=== PATIENT | male | born 1965 | race Caucasian/White ===

== ENCOUNTER → 2018-10-13 | Outpatient (CLI) | payer OTHER | END | disposition home or self-care (01) | LOC: CFH 12:33 | PROVIDERS: ATTEND Family Medicine | DX: M51.37 Other intervertebral disc degeneration, lumbosacral region (principal) | CPT/HCPCS: 72110 ==

== ENCOUNTER → 2020-11-22 | Outpatient (CLI) | payer OTHER ==
[~2020-11-22] MED LIST: CYCL10TA2 PO; METO50TA82 PO
[2020-11-22 12:55] LABS: BASOPHILS % (AUTO) 3 % (0-1); EOSINOPHILS % (AUTO) 10 % (1-7); LYMPHOCYTES % (AUTO) 23 % (22-44); MEAN CORPUSCULAR HEMOGLOBIN 33.4 pg (27.5-34.5); MEAN CORPUSCULAR HGB CONC 34.1 g/dL (33.2-36.2); MEAN PLATELET VOLUME 8.8 fL (7.4-10.4); MONOCYTES % (AUTO) 18 % (2-9); NEUTROPHILS % (AUTO) 46 % (42-75); PLATELET COUNT 196 x10^3/uL (130-400); RED BLOOD COUNT 4.97 x10^6/uL (4.38-5.82); RED CELL DISTRIBUTION WIDTH 13.1 % (9.4-14.8)
[2020-11-22 12:56] LABS: MD NO
[2020-11-22 13:00] LABS: ANION GAP 6 mmol/L (5-15); CALCIUM 9.2 mg/dL (8.5-10.1); CHLORIDE 101 mmol/L (98-107); CREATININE 0.83 mg/dL (0.7-1.3)
[2020-11-22 13:03] LABS: INTERNATIONAL NORMALIZED RATIO 1.01 (0.93-1.1); PROTHROMBIN TIME 10.8 Seconds (9.6-11.5)
== END | disposition home or self-care (01) ==
LOC: STAR 11:51
PROVIDERS: ATTEND Neurological Surgery
DX: Z01.818 Encounter for other preprocedural examination (principal); M51.36 Other intervertebral disc degeneration, lumbar region; Z20.822 Contact with and (suspected) exposure to COVID-19
CPT/HCPCS: 36415; 71046; 72110; 80048; 85025; 85610; 85730; 93005; U0003; U0005

== ENCOUNTER 2020-11-28 07:46 | Day surgery (SDC) | payer OTHER ==
[~2020-11-28] VITALS: Ht 177.8 cm; Wt 90.3 kg
[~2020-11-28 07:46] MED LIST changes: +BACITRACIN 50,000 UNIT ONE; +BACITRACIN OINT 500U/GM, 15 GM ONE; +BUPIVACAINE/PF 0.5% ONE; +EPINEPHRINE 1 MG/ML, 1ML ONE; +THROMBIN 20,000 UNIT VIAL TP ONE
[2020-11-28] MEDS ORDERED: FENTANYL PF 250 MCG/5ML ONE (08:22)
[2020-11-28] MEDS ORDERED: PROPOFOL 50 ML ONE ×2 (08:22→11:19)
[2020-11-28] MEDS ORDERED: MIDAZOLAM 1 MG/ML, 2ML ONE (08:22)
[2020-11-28] MEDS ORDERED: LIDOCAINE-MPF 2% ,5ML ONE (08:25)
[2020-11-28] MEDS ORDERED: PROPOFOL 10 MG/ML, 20ML ONE (08:25)
[2020-11-28] MEDS ORDERED: CEFAZOLIN 1,000 MG ONE ×2 (08:25)
[2020-11-28] MEDS ORDERED: SUCCINYLCHOLINE 20 MG/ML, 10ML ONE (08:25)
[2020-11-28] MEDS ORDERED: LACTATED RINGERS 1,000 ML IV SCH (08:30)
[2020-11-28] MEDS ORDERED: CHLORHEXIDINE 15 ML UDC PO ONE (08:30)
[2020-11-28] MEDS ORDERED: HYDROmorphone 1 MG/ML, 1ML INJ IVPush PRN (10:00)
[2020-11-28] MEDS ORDERED: PROMETHAZINE 25 MG/ML, 1ML IVPush PRN (10:00)
[2020-11-28] MEDS ORDERED: DIAZEPAM 5 MG/ML, 2ML IVPush PRN (10:00)
[2020-11-28] MEDS ORDERED: MEPERIDINE/PF 25MG/0.5ML IVPush PRN (10:00)
[2020-11-28] MEDS ORDERED: LABETALOL 5MG/ML, 20ML IV PRN (10:00)
[2020-11-28] MEDS ORDERED: ACETAMINOPHEN 325 MG TABLET PO PRN (10:00)
[2020-11-28] MEDS ORDERED: hydrALAzine 20 MG/ML, 1ML IV PRN (10:00)
[2020-11-28] MEDS ORDERED: FENTANYL PF 100 MCG/2ML IV PRN (10:00)
[2020-11-28] MEDS ORDERED: OXYcodone 5 MG/5 ML ORAL.SOL UDC PO PRN (10:00)
[2020-11-28] MEDS ORDERED: ONDANSETRON 2MG/ML, 2ML IVPush PRN (10:00)
[2020-11-28] MEDS ORDERED: DIPHENHYDRAMINE 50 MG/ML, 1ML IVPush PRN (10:00)
[2020-11-28] MEDS ORDERED: METHOCARBAMOL 1,000 MG in DEXTROSE 5% 100 ML IV PRN (10:00)
[2020-11-28] MEDS ORDERED: BUPIVACAINE/PF 0.5% INFIL ONE (10:59)
[2020-11-28] MEDS ORDERED: ONDANSETRON 2MG/ML, 2ML ONE (11:11)
[2020-11-28] MEDS ORDERED: BUPIVACAINE/PF 0.5% ONE (11:19)
[2020-11-28] MEDS ORDERED: ACETAMINOPHEN 650 MG/20.3 ML UDC ONE (13:42)
[2020-11-28] MEDS ORDERED: OXYcodone 5 MG/5 ML ORAL.SOL UDC ONE (13:43)
[2020-11-28] MEDS ORDERED: OXYC-307 PO (13:45)
[2020-11-28] MEDS ORDERED: FENTANYL PF 100 MCG/2ML ONE (13:46)
== END 2020-11-28 16:30 | disposition home or self-care (01) ==
LOC: OUT 07:46
PROVIDERS: ATTEND Neurological Surgery
DX: M51.36 Other intervertebral disc degeneration, lumbar region (principal); M48.07 Spinal stenosis, lumbosacral region; M51.17 Intervertebral disc disorders with radiculopathy, lumbosacral region; I10 Essential (primary) hypertension; G47.33 Obstructive sleep apnea (adult) (pediatric); Z79.899 Other long term (current) drug therapy; Z96.653 Presence of artificial knee joint, bilateral; Z87.891 Personal history of nicotine dependence; Z72.89 Other problems related to lifestyle
CPT/HCPCS: 63056; 72100; 95938; 95941; J0171; J0330; J0690; J2250; J2405; J2704; J2800; J3010; J7120